=== PATIENT | male | born 1965 | race Caucasian/White ===

== ENCOUNTER 2020-03-26 16:36 | Inpatient (IN) | payer OTHER ==
[~2020-03-26] VITALS: Ht 170.2 cm; Wt 85.0 kg
[2020-03-26] MEDS: normal saline 1000ml 1,000 ML IV SCH
[2020-03-26 18:00] LABS: BASOPHILS # (AUTO) 0.1 X10'3 (0-0.2); BASOPHILS % (AUTO) 0.5 % (0-1); EOSINOPHILS # (AUTO) 0.1 X10'3 (0-0.9); EOSINOPHILS % (AUTO) 0.5 % (0-6); HEMATOCRIT 48.2 % (42.0-52.0); HEMOGLOBIN 16.6 g/dl (14.0-17.9); LYMPHOCYTES # (AUTO) 1.4 X10'3 (1.1-4.8); MEAN CORPUSCULAR HGB CONC 34.5 g/dL (33.0-36.5); MEAN PLATELET VOLUME 8.9 FL (7.4-10.4); MONOCYTES # (AUTO) 0.6 X10'3 (0-0.9); MONOCYTES % (AUTO) 5.4 % (2-12); NEUTROPHILS # (AUTO) 8.6 X10'3 (1.8-7.7); NEUTROPHILS % (AUTO) 80.6 % (42-75); PLATELET COUNT 245 X10'3 (140-440); RED BLOOD COUNT 5.35 X10'6 (4.70-6.10); RED CELL DISTRIBUTION WIDTH 13.1 % (11.5-14.5); WHITE BLOOD COUNT 10.7 X10'3 (4.5-11.0)
[2020-03-26 18:25] LABS: ALANINE AMINOTRANSFERASE 29 U/L (12-78); ALBUMIN/GLOBULIN RATIO 1.1 (1.1-1.5); ALKALINE PHOSPHATASE 71 IU/L (46-116); ANION GAP 10 (8-16); ASPARTATE AMINO TRANSFERASE 16 U/L (10-37); BILIRUBIN,TOTAL 0.6 MG/DL (0.1-1.0); BLOOD UREA NITROGEN 12 MG/DL (7-18); BUN/CREATININE RATIO 12.9 (5.4-32.0); CALCIUM 9.1 MG/DL (8.5-10.1); CHLORIDE 102 MMOL/L (99-107); CREATININE 0.93 MG/DL (0.60-1.10); GLUCOSE 113 MG/DL (70-104); POTASSIUM 3.8 MMOL/L (3.5-5.1); SODIUM 137 MMOL/L (135-145); TOTAL CARBON DIOXIDE 25.4 MMOL/L (24-32); TOTAL PROTEIN 7.6 G/DL (6.4-8.2); eGFR 84 ML/MIN
[2020-03-26] MEDS ORDERED: nitroGLYCERIN 0.4mg/hour patch TD ONE (20:30)
[2020-03-26] MEDS ORDERED: aspirin 81mg tab.chew PO ONE (20:30)
[2020-03-26] MEDS ORDERED: temazepam 15mg capsule PO PRN (21:00)
[2020-03-26] MEDS ORDERED: NO HOME MEDS (21:40)
[2020-03-26] MEDS ORDERED: HYDROmorphone inj. 0.5 MG/0.5 ML DISP.SYRIN IV PRN (23:15)
[2020-03-26] MEDS ORDERED: magnesium Cl slow-release 64mg tablet PO PRN (23:15)
[2020-03-26] MEDS ORDERED: acetaminophen 325mg tablet PO PRN ×2 (23:15)
[2020-03-26] MEDS ORDERED: HYDROcodone/acetaminophen 10/325mg tab PO PRN (23:15)
[2020-03-26] MEDS ORDERED: magnesium hydroxide 30ml (MOM) UD suspension PO PRN (23:15)
[2020-03-26] MEDS ORDERED: ondansetron/PF 4mg/2ml inj IV PRN (23:15)
[2020-03-26] MEDS ORDERED: potassium CL 10mEq/100ml bag 100 ML IV PRN ×2 (23:15)
[2020-03-26] MEDS ORDERED: bisacodyl 10mg suppository rectal RC PRN (23:15)
[2020-03-26] MEDS ORDERED: HYDROmorphone 1 mg/ml syringe IV PRN (23:15)
[2020-03-26] MEDS ORDERED: mag hydrox/Alum hydrox/simeth 30ml oral suspension PO PRN (23:15)
[2020-03-26] MEDS ORDERED: magnesium 2GM in 50ml NS 50 ML IV PRN (23:15)
[2020-03-26] MEDS ORDERED: magnesium 4gm in 100ml NS 100 ML IV PRN (23:15)
[2020-03-26] MEDS ORDERED: potassium Cl 20 mEq SR tablet PO PRN (23:15)
[2020-03-26] MEDS ORDERED: HYDROcodone/acetaminophen 5mg/325mg tablet PO PRN (23:15)
[2020-03-26] MEDS ORDERED: nitroGLYCERIN 0.4mg SUBLingual tab SL PRN (23:15)
[2020-03-26] MEDS ORDERED: metoprolol tartrate 12.5mg (1/2 tablet) PO SCH (23:30)
[2020-03-26 23:40] LABS: LIPASE 70 U/L (73-393)
[2020-03-26] MEDS: pantoprazole 40mg Tablet.DR PO SCH (23:45)
[2020-03-27] VITALS: BP 116/65
--- NOTE | 2020-03-27 00:40 | NUR ---
PAGER ID: [phone] MESSAGE: [phone] KERRI Figueroa Angina. Spoke with patient regarding code status. Pt is fine with compressions, meds and defibrillation. Pt does not want intubation. EXT 8263.
[2020-03-27 02:00] VITALS: BP 131/73
[2020-03-27 06:00] VITALS: BP 116/65
--- NOTE | 2020-03-27 06:19 | NUR ---
Problems reprioritized. Patient report given, questions answered & plan of care reviewed with Melissa DIAS. Addendum: 03/27/20 at 0638 by Mohsen Ruiz RN Problems reprioritized. Patient report given, questions answered & plan of care reviewed with Marga DIAS.
[2020-03-27 06:25] LABS: BASOPHILS % (AUTO) 0.4 % (0-1); EOSINOPHILS # (AUTO) 0.1 X10'3 (0-0.9); EOSINOPHILS % (AUTO) 0.8 % (0-6); HEMOGLOBIN 14.7 g/dl (14.0-17.9); LYMPHOCYTES # (AUTO) 1.9 X10'3 (1.1-4.8); LYMPHOCYTES % (AUTO) 20.8 % (21-51); MEAN CORPUSCULAR HEMOGLOBIN 31.8 PG (27.0-31.0); MEAN CORPUSCULAR HGB CONC 34.9 g/dL (33.0-36.5); MEAN CORPUSCULAR VOLUME 91.2 FL (78-98); MEAN PLATELET VOLUME 8.7 FL (7.4-10.4); MONOCYTES # (AUTO) 0.5 X10'3 (0-0.9); NEUTROPHILS # (AUTO) 6.5 X10'3 (1.8-7.7); PLATELET COUNT 201 X10'3 (140-440); RED BLOOD COUNT 4.61 X10'6 (4.70-6.10); RED CELL DISTRIBUTION WIDTH 13.2 % (11.5-14.5); WHITE BLOOD COUNT 9.1 X10'3 (4.5-11.0)
[2020-03-27 06:44] LABS: ANION GAP 11 (8-16); BLOOD UREA NITROGEN 9 MG/DL (7-18); BUN/CREATININE RATIO 10.6 (5.4-32.0); CHLORIDE 103 MMOL/L (99-107); CREATININE 0.85 MG/DL (0.60-1.10); GLUCOSE 114 MG/DL (70-104); SODIUM 138 MMOL/L (135-145); TOTAL CARBON DIOXIDE 24.2 MMOL/L (24-32)
[2020-03-27 06:45] LABS: ALANINE AMINOTRANSFERASE 21 U/L (12-78); ALBUMIN 3.2 G/DL (3.4-5.0); ALBUMIN/GLOBULIN RATIO 1.1 (1.1-1.5); ALKALINE PHOSPHATASE 67 IU/L (46-116); ASPARTATE AMINO TRANSFERASE 14 U/L (10-37); BILIRUBIN,TOTAL 0.7 MG/DL (0.1-1.0); CALCIUM 8.4 MG/DL (8.5-10.1); CHOLESTEROL 164 MG/DL (0-200); HDL CHOLESTEROL 55 MG/DL (35-60); LDL CHOLESTEROL 95 MG/DL (50-100); MAGNESIUM 1.5 MG/DL (1.5-2.4); TOTAL PROTEIN 6.2 G/DL (6.4-8.2); TRIGLYCERIDES 78 MG/DL (20-135); eGFR > 90 ML/MIN
[2020-03-27 06:46] LABS: POTASSIUM 2.9 MMOL/L (3.5-5.1)
--- NOTE | 2020-03-27 06:50 | NUR ---
0646 - CRITICAL K OF 2.9 REPORTED TO PRIMARY RN.
--- NOTE | 2020-03-27 07:14 | NUR ---
notified PAGER ID: [phone] MESSAGE: [phone] [address] Valero. Critical K 2.9. I will follow the replacement protocol. thank you LARISSA mckeon ext [phone]
[2020-03-27] MEDS: pantoprazole 40mg Tablet.DR PO SCH (07:30)
[2020-03-27] MEDS ORDERED: K and/or MAG REPLACEMENT MC SCH (08:00)
[2020-03-27] MEDS ORDERED: enoxaparin 40mg/0.4ml syringe SUBCUT SCH (08:00)
[2020-03-27] MEDS ORDERED: aspirin 81mg tablet.DR PO SCH (08:00)
[2020-03-27] MEDS: potassium Cl 20 mEq SR tablet PO PRN ×2 (08:39→13:56)
[2020-03-27] MEDS ORDERED: iohexol 350MG/ML 100ml bottle IV ONE (08:58)
[2020-03-27] MEDS: normal saline 1000ml 1,000 ML IV SCH (09:11)
--- NOTE | 2020-03-27 09:57 | NUR ---
Notified PAGER ID: [phone] MESSAGE: Marialuisa [place] Valero. Abdomenal ultrasound shows mild cholecystitis recommended for surgical consult per report. thank you LARISSA mckeon ext [phone]
[2020-03-27 10:00] VITALS: BP 118/71
--- NOTE | 2020-03-27 12:14 | NUR ---
Notified PAGER ID: [phone] MESSAGE: Marialuisa [place] gonzalez. CTA done, no report yet. patient states he will most likely not agree to surgery due to insurance. thank you tammy mckeon ext [phone]
[2020-03-27 14:00] VITALS: BP 116/68
[2020-03-27] MEDS ORDERED: AMOX-580 PO (14:49)
[2020-03-27] MEDS ORDERED: HYDR-4383 PO (14:49)
--- NOTE | 2020-03-27 17:30 | NUR ---
Patient stable for discharge per MD orders. All discharge instructions and education reviewed with the patient and all questions answered. New prescriptions sent to pharmacy and narcotic script sent with patient. All known belongings sent with patient. PIV discontinued. Tele discontinued. patient ambulated to pmv driven by family.
== END 2020-03-27 17:37 | disposition home or self-care (01) | DRG 444 ==
LOC: ER 16:37 → ED HOLD 23:11 → MED 3N 23:50
PROVIDERS: ADMIT Family Medicine; ATTEND Family Medicine
DX: K80.00 Calculus of gallbladder with acute cholecystitis without obstruction (principal); I21.4 Non-ST elevation (NSTEMI) myocardial infarction; E87.6 Hypokalemia; F15.10 Other stimulant abuse, uncomplicated; I10 Essential (primary) hypertension; Z66 Do not resuscitate; Z82.49 Family history of ischemic heart disease and other diseases of the circulatory system; Z79.899 Other long term (current) drug therapy
CPT/HCPCS: 36415; 71045; 71275; 76700; 80053; 80061; 83690; 83735; 83880; 84484; 85025; 87081; 93005; 93306; 99285; G0378; J7030; Q9967

== ENCOUNTER 2022-06-11 09:07 | Inpatient (IN) | payer MEDICAID ==
[~2022-06-11] VITALS: Ht 170.2 cm; Wt 82.5 kg
[~2022-06-11 09:07] MED LIST: BUPR-297 PO; NICO-630 TD; TRAZ-251 PO
[2022-06-11 10:38] LABS: URINE AMPHETAMINE SCREEN NEGATIVE (Neg); URINE BARBITUATE SCREEN NEGATIVE (Neg); URINE BENZODIAZEPINES SCREEN NEGATIVE (Neg); URINE CANNABINOID SCREEN NEGATIVE (Neg); URINE COCAINE SCREEN NEGATIVE (Neg); URINE METHADONE SCREEN NEGATIVE (Neg); URINE OPIATE SCREEN NEGATIVE (Neg); URINE PHENCYCLIDINE SCREEN NEGATIVE (Neg)
[2022-06-11 11:04] LABS: BASOPHILS % (AUTO) 0.6 % (0-1); EOSINOPHILS # (AUTO) 0.1 X10'3 (0-0.9); HEMATOCRIT 42.2 % (42.0-52.0); HEMOGLOBIN 14.7 g/dl (14.0-17.9); LYMPHOCYTES # (AUTO) 1.5 X10'3 (1.1-4.8); LYMPHOCYTES % (AUTO) 23.3 % (21-51); MEAN CORPUSCULAR HEMOGLOBIN 32.6 PG (27.0-31.0); MEAN CORPUSCULAR HGB CONC 34.9 g/dL (33.0-36.5); MEAN CORPUSCULAR VOLUME 93.5 FL (78-98); MEAN PLATELET VOLUME 8.1 FL (7.4-10.4); MONOCYTES # (AUTO) 0.4 X10'3 (0-0.9); MONOCYTES % (AUTO) 6.6 % (2-12); NEUTROPHILS # (AUTO) 4.4 X10'3 (1.8-7.7); NEUTROPHILS % (AUTO) 68.5 % (42-75); PLATELET COUNT 202 X10'3 (140-440); RED BLOOD COUNT 4.51 X10'6 (4.70-6.10); RED CELL DISTRIBUTION WIDTH 14.4 % (11.5-14.5); WHITE BLOOD COUNT 6.5 X10'3 (4.5-11.0)
[2022-06-11 11:05] LABS: ALANINE AMINOTRANSFERASE 32 U/L (12-78); ALBUMIN 3.7 G/DL (3.4-5.0); ALBUMIN/GLOBULIN RATIO 1.1 (1.1-1.5); ANION GAP 7 (8-16); ASPARTATE AMINO TRANSFERASE 24 U/L (10-37); BILIRUBIN,TOTAL 0.3 MG/DL (0.1-1.0); BLOOD UREA NITROGEN 14 MG/DL (7-18); BUN/CREATININE RATIO 12.8 (5.4-32.0); CALCIUM 8.6 MG/DL (8.5-10.1); CHLORIDE 105 MMOL/L (99-107); CREATININE 1.09 MG/DL (0.60-1.10); GLUCOSE 108 MG/DL (70-104); POTASSIUM 4.1 MMOL/L (3.5-5.1); SODIUM 142 MMOL/L (135-145); TOTAL CARBON DIOXIDE 29.9 MMOL/L (24-32); TOTAL PROTEIN 7.2 G/DL (6.4-8.2); eGFR 69 ML/MIN
[2022-06-11 11:06] LABS: ALKALINE PHOSPHATASE 76 IU/L (46-116)
[2022-06-11 11:14] LABS: ETHANOL 0.011 GM/DL (0.0-0.010)
[2022-06-11 11:35] LABS: ACETAMINOPHEN < 2.0 UG/ML (10-30)
--- NOTE | 2022-06-11 13:46 | NUR ---
pt remains calm cooperative. offerd blankets for comfort, pt did not eat from lunch tray; states he is not that hungry. no issues at this time. Continue to monitor.
[2022-06-11 14:30] VITALS: BP 158/94
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
[2022-06-11] MEDS ORDERED: magnesium hydroxide 30ml (MOM) UD suspension PO PRN (14:45)
[2022-06-11] MEDS ORDERED: loperamide 2mg capsule PO PRN (14:45)
[2022-06-11] MEDS ORDERED: acetaminophen 325mg tablet PO PRN ×2 (14:45)
[2022-06-11] MEDS ORDERED: mag hydrox/Alum hydrox/simeth 30ml oral suspension PO PRN (14:45)
[2022-06-11] MEDS ORDERED: nicotine 21mg patch - 24 hr TD ONE (14:50)
[2022-06-11] MEDS: NICOTINE POLACRILEX 2 MG LOZENGE BC PRN (16:56)
[2022-06-11] MEDS ORDERED: BUPR150T8 PO (18:50)
[2022-06-11] MEDS ORDERED: TRAZ-256 PO (19:03)
[2022-06-11] MEDS: LORazepam 0.5 MG tablet PO PRN (20:01)
[2022-06-11] MEDS: traZODone 50mg tablet PO SCH (20:01)
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
[2022-06-12] MEDS ORDERED: buPROPion SR 150mg tablet PO SCH (08:00)
[2022-06-12] MEDS: nicotine 21mg patch - 24 hr TD SCH (08:04)
[2022-06-12 08:22] VITALS: BP 128/81
[2022-06-12] MEDS: NICOTINE POLACRILEX 2 MG LOZENGE BC PRN ×4 (08:51→18:20)
[2022-06-12 09:26] LABS: CHOL/HDL RATIO 3.4 (0.00-4.99); CHOLESTEROL 237 MG/DL (0-200); HDL CHOLESTEROL 69 MG/DL (35-60); LDL CHOLESTEROL 125 MG/DL (50-100); TRIGLYCERIDES 116 MG/DL (20-135)
[2022-06-12] MEDS: LORazepam 0.5 MG tablet PO PRN ×3 (10:25→22:08)
--- NOTE | 2022-06-12 13:57 | NUR ---
[employer] Client attended group. Group focus was psychosocial education based, topic was controlling the people who enter your life and boundaries. Client was quiet, answered direct questions, stayed for entirety of group, and appeared worried or sad as evidenced by tone of voice, facial expression, and choice of words.
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
[2022-06-12] MEDS: traZODone 50mg tablet PO SCH (20:38)
[2022-06-13] MEDS ORDERED: hydrOXYzine 10 MG tablet PO PRN (07:00)
[2022-06-13] MEDS: nicotine 21mg patch - 24 hr TD SCH (07:58)
[2022-06-13] MEDS ORDERED: buproprion 150mg XL (24-hour) tablet PO SCH (08:00)
[2022-06-13] MEDS: NICOTINE POLACRILEX 2 MG LOZENGE BC PRN ×4 (08:34→20:20)
[2022-06-13 08:35] VITALS: BP 131/72
[2022-06-13] MEDS: LORazepam 0.5 MG tablet PO PRN ×2 (09:38→15:46)
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
[2022-06-13 19:00] VITALS: BP 144/92
[2022-06-13] MEDS: traZODone 50mg tablet PO SCH (20:19)
[2022-06-13] MEDS: buPROPion SR 150mg tablet PO SCH (20:19)
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
[2022-06-14] MEDS: LORazepam 0.5 MG tablet PO PRN ×2 (02:39→10:06)
[2022-06-14] MEDS: buPROPion SR 150mg tablet PO SCH ×2 (07:58→14:49)
[2022-06-14 08:00] VITALS: BP 109/77
[2022-06-14] MEDS: nicotine 21mg patch - 24 hr TD SCH (08:04)
[2022-06-14] MEDS: NICOTINE POLACRILEX 2 MG LOZENGE BC PRN ×3 (08:33→14:53)
[2022-06-14] MEDS ORDERED: levoTHYROXINE 25mcg tablet PO ONE (08:40)
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
[2022-06-14 19:00] VITALS: BP 151/83
[2022-06-14] MEDS: traZODone 50mg tablet PO SCH (20:49)
[2022-06-14] MEDS: hydrOXYzine 10 MG tablet PO PRN (21:19)
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
--- NOTE | 2022-06-15 07:24 | NUR ---
Initial: Pt admitted w/ depression per EMR. Currently on Regular diet w/ mostly 100% intake of meals meeting est needs at this time. LBM 06/13. No nutrition intervention implemented at this time, will continue to monitor. Recs: 1. Continue Regular diet as tolerated 2. Bowel care PRN 3. Weekly wts Addendum: 06/15/22 at [address] Amended: Links added.
[2022-06-15] MEDS: nicotine 21mg patch - 24 hr TD SCH (07:38)
[2022-06-15] MEDS: buPROPion SR 150mg tablet PO SCH ×2 (07:38→14:13)
[2022-06-15] MEDS: levoTHYROXINE 25mcg tablet PO SCH (07:38)
[2022-06-15 08:00] VITALS: BP 107/72
[2022-06-15] MEDS: hydrOXYzine 10 MG tablet PO PRN ×3 (10:24→20:19)
[2022-06-15] MEDS: NICOTINE POLACRILEX 2 MG LOZENGE BC PRN ×3 (10:24→20:19)
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
[2022-06-15 19:32] VITALS: BP 137/84
[2022-06-15] MEDS: traZODone 50mg tablet PO SCH (20:19)
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
[2022-06-16] MEDS: levoTHYROXINE 25mcg tablet PO SCH (07:59)
[2022-06-16] MEDS: nicotine 21mg patch - 24 hr TD SCH (07:59)
[2022-06-16] MEDS: buPROPion SR 150mg tablet PO SCH ×2 (07:59→13:55)
[2022-06-16 08:00] VITALS: BP 109/70
[2022-06-16] MEDS: hydrOXYzine 10 MG tablet PO PRN (08:12)
[2022-06-16] MEDS: NICOTINE POLACRILEX 2 MG LOZENGE BC PRN ×2 (09:33→13:11)
[2022-06-16] MEDS ORDERED: TRAZ-251 PO (12:00)
[2022-06-16] MEDS ORDERED: HYDR-3717 PO (12:00)
[2022-06-16] MEDS ORDERED: NICO-687 TD (12:00)
[2022-06-16] MEDS ORDERED: BUPR-72 PO (12:00)
[2022-06-16] MEDS ORDERED: LEVO25TA7 PO (12:00)
--- NOTE | 2022-06-16 12:25 | NUR ---
DISCHARGE PLAN Pt. to discharge today. He will return to his home and will collect his car at [facility] once [facility]. He has follow up appointments arrange at [facility] which he is aware of. Leora Balderas LCSW
== END 2022-06-16 13:55 | disposition home or self-care (01) | DRG 754 ==
LOC: ER 09:09 → ED HOLD 13:45 → ADULT MH 14:30
PROVIDERS: ADMIT Psychiatry & Neurology Psychiatry; ATTEND Psychiatry & Neurology Psychiatry
DX: F32.9 Major depressive disorder, single episode, unspecified (principal); R45.851 Suicidal ideations; F10.21 Alcohol dependence, in remission; Z20.822 Contact with and (suspected) exposure to COVID-19; F15.21 Other stimulant dependence, in remission; F17.210 Nicotine dependence, cigarettes, uncomplicated; I10 Essential (primary) hypertension; Z79.899 Other long term (current) drug therapy; Z90.49 Acquired absence of other specified parts of digestive tract; Z71.6 Tobacco abuse counseling
CPT/HCPCS: 36415; 80053; 80061; 80305; 80320; 80329; 84439; 84443; 84480; 85025; 87081; 87811; 99285

== ENCOUNTER 2022-12-18 20:39 | Emergency (ER) | payer MEDICAID ==
[~2022-12-18] VITALS: Ht 170.2 cm; Wt 84.1 kg
[~2022-12-18 20:39] MED LIST changes: -BUPR-297 PO; +BUPR-72 PO; +HYDR-3717 PO; +LEVO25TA7 PO; -NICO-630 TD; +NICO-687 TD
[2022-12-18 21:44] LABS: BASOPHILS # (AUTO) 0.1 X10'3 (0-0.2); BASOPHILS % (AUTO) 1.1 % (0-1); EOSINOPHILS # (AUTO) 0.2 X10'3 (0-0.9); EOSINOPHILS % (AUTO) 2.9 % (0-6); HEMATOCRIT 43.4 % (42.0-52.0); HEMOGLOBIN 14.9 g/dl (14.0-17.9); LYMPHOCYTES # (AUTO) 2.5 X10'3 (1.1-4.8); LYMPHOCYTES % (AUTO) 44.6 % (21-51); MEAN CORPUSCULAR HEMOGLOBIN 32.5 PG (27.0-31.0); MEAN CORPUSCULAR HGB CONC 34.3 g/dL (33.0-36.5); MEAN CORPUSCULAR VOLUME 94.6 FL (78-98); MEAN PLATELET VOLUME 8.7 FL (7.4-10.4); MONOCYTES # (AUTO) 0.3 X10'3 (0-0.9); MONOCYTES % (AUTO) 4.6 % (2-12); NEUTROPHILS # (AUTO) 2.6 X10'3 (1.8-7.7); NEUTROPHILS % (AUTO) 46.8 % (42-75); PLATELET COUNT 223 X10'3 (140-440); RED BLOOD COUNT 4.58 X10'6 (4.70-6.10); RED CELL DISTRIBUTION WIDTH 13.8 % (11.5-14.5); WHITE BLOOD COUNT 5.5 X10'3 (4.5-11.0)
[2022-12-18 21:48] LABS: ALANINE AMINOTRANSFERASE 27 U/L (12-78); ALBUMIN 3.7 G/DL (3.4-5.0); ALBUMIN/GLOBULIN RATIO 1.1 (1.1-1.5); ALKALINE PHOSPHATASE 70 IU/L (46-116); ANION GAP 9 (8-16); ASPARTATE AMINO TRANSFERASE 18 U/L (10-37); BILIRUBIN,TOTAL 0.2 MG/DL (0.1-1.0); BLOOD UREA NITROGEN 11 MG/DL (7-18); CALCIUM 8.2 MG/DL (8.5-10.1); CHLORIDE 105 MMOL/L (99-107); CREATININE 1.22 MG/DL (0.60-1.10); ETHANOL 0.216 GM/DL (0.0-0.010); GLUCOSE 95 MG/DL (70-104); POTASSIUM 3.9 MMOL/L (3.5-5.1); SODIUM 140 MMOL/L (135-145); TOTAL CARBON DIOXIDE 25.8 MMOL/L (24-32); eGFR 61 ML/MIN
[2022-12-18 22:00] LABS: ACETAMINOPHEN < 2.0 UG/ML (10-30)
[2022-12-18] MEDS ORDERED: LEVO50TA8 PO (22:15)
[2022-12-18] MEDS ORDERED: BUPR300T86 PO (22:15)
[2022-12-18] MEDS ORDERED: TRAZ-256 PO (22:15)
[2022-12-18] MEDS ORDERED: ESCI-8 PO (22:15)
[2022-12-18] MEDS ORDERED: NICOTINE POLACRILEX 4 MG LOZENGE BC PRN (22:35)
[2022-12-18] MEDS ORDERED: traZODone 50mg tablet PO SCH (22:38)
[2022-12-18] MEDS: buPROPion SR 150mg tablet PO SCH (23:24)
[2022-12-18] MEDS: NICOTINE POLACRILEX 2 MG LOZENGE BC PRN (23:25)
--- NOTE | 2022-12-18 23:38 | NUR ---
DOES NOT WANT HIS GIRLFRIEND TO KNOW HE'S HERE OR ANYONE TO TALK TO HER (BULMARO)
[2022-12-19] MEDS ORDERED: levoTHYROXINE 25mcg tablet PO SCH (07:00)
[2022-12-19] MEDS ORDERED: ESCITALOPRAM OXALATE 5 MG TABLET PO SCH (08:00)
[2022-12-19] MEDS: buPROPion SR 150mg tablet PO SCH (08:45)
--- NOTE | 2022-12-19 08:52 | NUR ---
PER DR DURÁN RN MAY ORD REG DIET AND REQ PT TRAY.
--- NOTE | 2022-12-19 08:53 | NUR ---
RN REQ REG DIET TRAY FROM DIETARY. LEFT VM.
[2022-12-19] MEDS: NICOTINE POLACRILEX 2 MG LOZENGE BC PRN (09:55)
[2022-12-19 10:24] LABS: URINE AMPHETAMINE SCREEN NEGATIVE (Neg); URINE BARBITUATE SCREEN NEGATIVE (Neg); URINE BENZODIAZEPINES SCREEN NEGATIVE (Neg); URINE CANNABINOID SCREEN NEGATIVE (Neg); URINE COCAINE SCREEN NEGATIVE (Neg); URINE METHADONE SCREEN NEGATIVE (Neg); URINE OPIATE SCREEN NEGATIVE (Neg); URINE PHENCYCLIDINE SCREEN NEGATIVE (Neg)
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
--- NOTE | 2022-12-19 12:32 | NUR ---
[facility] here to evaluate patient.
[2022-12-19] MEDS ORDERED: LEVO25TA2 PO (13:07)
[2022-12-19 13:46] VITALS: BP 144/91
== END 2022-12-19 13:51 | disposition home or self-care (01) ==
LOC: ER 20:39
DX: R45.851 Suicidal ideations (principal); Z20.822 Contact with and (suspected) exposure to COVID-19; F10.129 Alcohol abuse with intoxication, unspecified; I10 Essential (primary) hypertension; F15.20 Other stimulant dependence, uncomplicated; Y90.9 Presence of alcohol in blood, level not specified
CPT/HCPCS: 36415; 80053; 80305; 80320; 80329; 84443; 85025; 87811; 99285

== ENCOUNTER 2024-01-20 10:51 | Emergency (ER) | payer MEDICAID ==
[~2024-01-20] VITALS: Ht 170.2 cm; Wt 84.1 kg
[~2024-01-20 10:51] MED LIST changes: +BUPR-564 PO; -BUPR-72 PO; +ESCI-8 PO; -HYDR-3717 PO; -LEVO25TA7 PO; +LEVO50TA8 PO; -NICO-687 TD; -TRAZ-251 PO; +TRAZ-256 PO
[2024-01-20] MEDS: normal saline 1000ML IV soln IV ONE (11:29)
[2024-01-20 11:39] LABS: BASOPHILS % (AUTO) 0.2 % (0-1); EOSINOPHILS % (AUTO) 0.2 % (0-6); HEMOGLOBIN 15.1 g/dl (14.0-17.9); LYMPHOCYTES # (AUTO) 0.8 X10'3 (1.1-4.8); LYMPHOCYTES % (AUTO) 8.5 % (21-51); MEAN CORPUSCULAR HEMOGLOBIN 33.4 PG (27.0-31.0); MEAN CORPUSCULAR HGB CONC 33.5 g/dL (33.0-36.5); MEAN CORPUSCULAR VOLUME 99.7 FL (78-98); MEAN PLATELET VOLUME 7.9 FL (7.4-10.4); MONOCYTES # (AUTO) 0.4 X10'3 (0-0.9); MONOCYTES % (AUTO) 4.7 % (2-12); NEUTROPHILS # (AUTO) 7.6 X10'3 (1.8-7.7); NEUTROPHILS % (AUTO) 86.4 % (42-75); PLATELET COUNT 168 X10'3 (140-440); RED BLOOD COUNT 4.51 X10'6 (4.70-6.10); RED CELL DISTRIBUTION WIDTH 14.1 % (11.5-14.5); WHITE BLOOD COUNT 8.8 X10'3 (4.5-11.0)
[2024-01-20] MEDS: acetaminophen 325mg tablet PO ONE (11:48)
[2024-01-20 11:52] LABS: ALBUMIN 3.7 G/DL (3.4-5.0); ANION GAP 9 (8-16); BLOOD UREA NITROGEN 11 MG/DL (7-18); CALCIUM 8.5 MG/DL (8.5-10.1); CHLORIDE 103 MMOL/L (99-107); CREATININE 1.22 MG/DL (0.60-1.10); GLUCOSE 125 MG/DL (70-104); POTASSIUM 3.5 MMOL/L (3.5-5.1); SODIUM 140 MMOL/L (135-145); TOTAL CARBON DIOXIDE 27.9 MMOL/L (24-32); eCRCL 60 ML/MIN; eGFR 61 ML/MIN
[2024-01-20] MEDS ORDERED: labetalol 20mg/4ml (5mg/ml) syringe IV ONE (12:05)
[2024-01-20] MEDS: ondansetron/PF 4mg/2ml inj IV ONE (12:31)
[2024-01-20] MEDS: morphine 2 MG/ML inj. syringe IV ONE (12:32)
[2024-01-20] MEDS: amLODIPine 5mg tablet PO ONE (13:15)
[2024-01-20 13:28] LABS: BILIRUBIN,URINE SMALL (Neg); CLARITY,URINE CLOUDY (Clear); COLOR,URINE YELLOW (Yellow); GLUCOSE, URINE 100 mg/dl (Neg); KETONES,URINE TRACE mg/dl (Neg); LEUKOCYTE ESTERASE ,URINE NEGATIVE (Neg); OCCULT BLOOD,URINE MODERATE (Neg); PROTEIN,URINE 30 mg/dl (Neg)
[2024-01-20 13:30] LABS: UA COLLECTION TYPE CLN CATCH MIDSTREAM
[2024-01-20 13:32] LABS: NITRITES, URINE NEGATIVE (Neg)
[2024-01-20 13:39] LABS: BACTERIA,URINE 1+ /HPF (Neg)
[2024-01-20 13:46] LABS: AMORPHOUS URATES 4+; MUCUS STRANDS MODERATE /LPF (Neg)
[2024-01-20] MEDS ORDERED: HYDR-3965 PO (13:48)
[2024-01-20 13:50] LABS: HYALINE CASTS 0-3 /LPF (NEGATIVE); SQUAMOUS EPITHELIAL CELL,UR MANY /LPF (FEW); TRANSITIONAL EPI CELLS,URINE FEW /HPF
[2024-01-20 13:52] LABS: RBC,URINE 50-100 /HPF (0-2)
[2024-01-20] MEDS ORDERED: AMLO5TAB16 PO (13:52)
[2024-01-20] MEDS ORDERED: FLO0.4C PO (13:52)
[2024-01-20 14:18] VITALS: BP 180/106; PULSE 80; RESP 16; TEMP 98.4; O2SAT 95
== END 2024-01-20 14:24 | disposition home or self-care (01) ==
LOC: ER 10:51
DX: N20.0 Calculus of kidney (principal); I10 Essential (primary) hypertension; E03.9 Hypothyroidism, unspecified; F15.90 Other stimulant use, unspecified, uncomplicated; Z79.899 Other long term (current) drug therapy
CPT/HCPCS: 36415; 74176; 80048; 81001; 84145; 85025; 96361; 96374; 96375; 99285; J2270; J2405; J7030